=== PATIENT | male | born 1975 | race Caucasian/White ===

== ENCOUNTER 2022-08-18 15:40 | Emergency (ER) | payer MEDICAID ==
[~2022-08-18] VITALS: Ht 172.7 cm; Wt 68.2 kg
[2022-08-18 17:06] VITALS: BP 140/81
[2022-08-18] MEDS ORDERED: LIDOCAINE 1% 10 ML VIAL SQ ONE (17:15)
[2022-08-18] MEDS ORDERED: PERTUSS(ACELL),DIPH,TET VAC/PF 0.5 ML SYRINGE IM. ONE (17:45)
== END 2022-08-18 18:10 | disposition home or self-care (01) ==
LOC: EMS 15:40
DX: S01.81XA Laceration without foreign body of other part of head, initial encounter (principal); F12.90 Cannabis use, unspecified, uncomplicated; Z98.890 Other specified postprocedural states; W01.198A Fall on same level from slipping, tripping and stumbling with subsequent striking against other object, initial encounter; Y93.89 Activity, other specified; Y92.89 Other specified places as the place of occurrence of the external cause; Y99.8 Other external cause status
CPT/HCPCS: 99283; 90715; 90471; 12013; J3490